=== PATIENT | male | born 1950 | race Two or more races ===

== ENCOUNTER 2020-04-10 20:20 | Emergency (ER) | payer MEDICARE, OTHER ==
[~2020-04-10] VITALS: Ht 162.6 cm; Wt 72.6 kg
--- NOTE | 2020-04-10 20:55 | NUR ---
ED Nurse Note: Patient walked into the ED with c/o left ear pain onset this afternoon. Cause is unknown. Pain is 4/10 associated with sweliing and headache. Patient denies injury, chest pain, SOB, N/V. Patient is AAOX4 and ambulatory.
--- NOTE | 2020-04-10 21:00 | NUR ---
ED Nurse Note: ERMD at bedside
[2020-04-10 21:15] VITALS: BP 157/91
[2020-04-10] MEDS ORDERED: Omnipaque 350 100ml vial INJ PRN (21:15)
--- NOTE | 2020-04-10 21:30 | NUR ---
ED Nurse Note: Blood specimen sent for workup.
[2020-04-10 21:48] LABS: BASOPHILS % (AUTO) 0.5 % (0.0-2.0); EOSINOPHILS % (AUTO) 0.5 % (0.0-3.0); HEMATOCRIT 46.7 % (42.0-52.0); HEMOGLOBIN 15.3 G/DL (14.2-18.0); LYMPHOCYTES % (AUTO) 13.9 % (20.0-45.0); MEAN CORPUSCULAR VOLUME 89 FL (80-99); MONOCYTES % (AUTO) 5.7 % (1.0-10.0); NEUTROPHILS % (AUTO) 79.5 % (45.0-75.0); PLATELET COUNT 210 K/UL (150-450); RED BLOOD COUNT 5.28 M/UL (4.70-6.10); RED CELL DISTRIBUTION WIDTH 12.5 % (11.6-14.8); WHITE BLOOD COUNT 13.9 K/UL (4.8-10.8)
[2020-04-10 21:54] LABS: ANION GAP 13 mmol/L (5-15); BLOOD UREA NITROGEN 15 mg/dL (7-18); CALCIUM 9.2 MG/DL (8.5-10.1); CARBON DIOXIDE 27 MMOL/L (21-32); CHLORIDE 99 MMOL/L (98-107); CREATININE 1.3 MG/DL (0.55-1.30); POTASSIUM 3.1 MMOL/L (3.5-5.1); SODIUM 139 MMOL/L (136-145)
[2020-04-10 22:01] LABS: ALANINE AMINOTRANSFERASE 52 U/L (12-78); ALBUMIN 4.7 G/DL (3.4-5.0); ALKALINE PHOSPHATASE 116 U/L (46-116); ASPARTATE AMINO TRANSFERASE 21 U/L (15-37); BILIRUBIN,TOTAL 0.8 MG/DL (0.2-1.0)
--- NOTE | 2020-04-10 22:22 | Emergency Room Report ---
History of Present Illness General Chief Complaint: Earache Present Illness HPI 70-year-old male with a history of CVA with residual right eye blindness, hypertension here with left-sided facial swelling and left ear pain for 4 days. Patient says he first noticed it 4 days ago and it has been gradually worsening. He has felt warm but does not check his temperature but does not believe he has had a fever. No hearing changes. No difficulty speaking or swallowing. No airway compromise. Says the left side of his face feels "sore" and he is complaining of a generalized headache. No fevers, chills, chest pain , palpitations, shortness of breath, back pain, abdominal pain, cough, nausea, vomiting, diarrhea, dysuria, hematuria. 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 Normal tympanic membranes bilaterally. Left-sided facial swelling over the region of the parotid gland. No skin changes. Pain on palpation of the swelling region Neck: full range of motion, supple/symm/no masses Respiratory: chest non-tender, lungs clear, normal breath sounds, speaking full sentences Cardiovascular #1: regular rate, rhythm, no edema Cardiovascular #2: 2+ carotid (R), 2+ carotid (L), 2+ radial (R), 2+ radial (L) , 2+ dorsalis pedis (R), 2+ dorsalis pedis (L) Gastrointestinal: normal bowel sounds, non tender, soft, non-distended, no guarding, no rebound Rectal: deferred Genitourinary: normal inspection, no CVA tenderness Musculoskeletal: back normal, normal range of motion, calf tenderness, gait/ station normal, non-tender Neurologic: alert, motor strength/tone normal, oriented x3, sensory intact, responsive, speech normal Psychiatric: judgement/insight normal, memory normal, mood/affect normal, no suicidal/homicidal ideation Reflexes: 3+ bicep (R), 3+ bicep (L), 3+ tricep (R), 3+ tricep (L), 3+ knee (R) , 3+ knee (L) Lymphatic: no adenopathy Medical Decision Making ER Course 70-year-old male here with left-sided facial swelling. Patient was found at leukocytosis of around 14,000. Labs otherwise unremarkable. CT soft tissue neck to be performed to rule out abscess versus separative parotitis versus viral parotitis. Patient signed out to oncoming physician. Last Vital Signs Date Time Temp Pulse Resp B/P (MAP) Pulse Ox O2 Delivery O2 Flow Rate FiO2 04/10/20 21:15 99.0 102 16 157/91 98 Room Air Referrals: NON PHYSICIAN (PCP) Rusty Adame M.D. Apr 10, 2020 22:22
[2020-04-10] MEDS ORDERED: AUGMENTIN 875-1 EAC1 ORAL (23:03)
[2020-04-10] MEDS ORDERED: ACETAMINOPHEN-1 EAC1 ORAL (23:03)
--- NOTE | 2020-04-10 23:10 | NUR ---
ER DISCHARGE NOTE: Patient is cleared to be discharged per ERMD, pt is aox4, on room air, with stable vital signs. pt was given dc and prescription instructions, pt was able to verbalize understanding, pt id band and iv site removed without complications. pt is able to ambulate to the waiting area with template reproduction technician and was accompanied by from there.. pt took all belongings.
[2020-04-10 23:11] VITALS: BP 127/85
[2020-04-10] MEDS ORDERED: Augmentin 875mg Tab ORAL ONE (23:15)
[2020-04-10] MEDS ORDERED: Acetaminophen 500mg (ES) tab ORAL ONE (23:15)
--- NOTE | 2020-04-11 00:08 | Emergency Room Report ---
Physical Exam Vital Signs Date Time Temp Pulse Resp B/P (MAP) Pulse Ox O2 Delivery O2 Flow Rate FiO2 04/10/20 20:38 99.0 111 16 157/91 (113) 98 Room Air Medical Decision Making Diagnostic Impression: Primary Impression: Parotitis ER Course Hospital Course 70-year-old male presents with left-sided facial swelling Clinical course Patient initially seen and evaluated by Dr. Adame; please see his note for full history and physical Labs - noted leukocytosis, electrolytes ok, CT scan some prominence of the L parotid compared to R. CT also comments on Left P1 occlusion. chronicity unclear. I discussed findings with patient. Patient has no focal deficits at this time. Prior history of CVA. Presented with complaint of left ear pain and swelling. I gave patient copy of CT report and he states he will follow-up with his PMD. Given antibiotics and pain meds here. Will discharge with antibiotics. Safe for discharge close outpatient follow-up I feel this is a highly complex case requiring extensive workup including EKG/ Rhythm strip, Xray/CT/US, Blood/urine lab work, repeat exams while in ED, and administration of strong opiates/narcotics for pain control, admission to hospital or close patient follow up. Diagnosis - parotitis Stable and discharged to home with Rx Tylenol, Augmentin. Followup with PMD. Return to ED if symptoms recur or worsen Laboratory Tests Test 04/10/20 21:30 White Blood Count 13.9 K/UL (4.8-10.8) H Red Blood Count 5.28 M/UL (4.70-6.10) Hemoglobin 15.3 G/DL (14.2-18.0) Hematocrit 46.7 % (42.0-52.0) Mean Corpuscular Volume 89 FL (80-99) Mean Corpuscular Hemoglobin 29.1 PG (27.0-31.0) Mean Corpuscular Hemoglobin Concent 32.8 G/DL (32.0-36.0) Red Cell Distribution Width 12.5 % (11.6-14.8) Platelet Count 210 K/UL (150-450) Mean Platelet Volume 7.9 FL (6.5-10.1) Neutrophils (%) (Auto) 79.5 % (45.0-75.0) H Lymphocytes (%) (Auto) 13.9 % (20.0-45.0) L Monocytes (%) (Auto) 5.7 % (1.0-10.0) Eosinophils (%) (Auto) 0.5 % (0.0-3.0) Basophils (%) (Auto) 0.5 % (0.0-2.0) Sodium Level 139 MMOL/L (136-145) Potassium Level 3.1 MMOL/L (3.5-5.1) L Chloride Level 99 MMOL/L (98-107) Carbon Dioxide Level 27 MMOL/L (21-32) Anion Gap 13 mmol/L (5-15) Blood Urea Nitrogen 15 mg/dL (7-18) Creatinine 1.3 MG/DL (0.55-1.30) Estimat Glomerular Filtration Rate 54.9 mL/min (>60) Glucose Level 133 MG/DL (74-106) H Calcium Level 9.2 MG/DL (8.5-10.1) Total Bilirubin 0.8 MG/DL (0.2-1.0) Aspartate Amino Transf (AST/SGOT) 21 U/L (15-37) Alanine Aminotransferase (ALT/SGPT) 52 U/L (12-78) Alkaline Phosphatase 116 U/L (46-116) Total Protein 9.4 G/DL (6.4-8.2) H Albumin 4.7 G/DL (3.4-5.0) Globulin 4.7 g/dL Albumin/Globulin Ratio 1.0 (1.0-2.7) CT/MRI/US Diagnostic Results CT/MRI/US Diagnostic Results : Imaging Test Ordered: CTA neck w/ contrast Impression ADDENDUM - Added by Heath Martinez MD on 04/10/2020 10:58 PM (-07:00) Addendum: 1. Per discussion with the attending physician, there is concern regarding left facial swelling and left ear pain. 2. Minimal left parotid prominence compared with the right and minimal intraparotid fat stranding. 3. This could represent parotitis in the proper context. 4. No acute neurologic concern is present. 5. Remainder of the report is unchanged. EXAM: CT Angiography Neck Without and With Intravenous Contrast CLINICAL HISTORY: PAIN TECHNIQUE: Axial computed tomographic angiography images of the neck without and with intravenous contrast. CTDI is 74.6 mGy and DLP is 834.4 mGy-cm. One or more of the following dose reduction techniques were used: automated exposure control, adjustment of the mA and/or kV according to patient size, use of iterative reconstruction technique. MIP reconstructed images were created and reviewed. Coronal and sagittal reformatted images were created and reviewed. Axial reformatted images were created and reviewed. COMPARISON: No relevant prior studies available. FINDINGS: VASCULATURE: Right common carotid artery: Unremarkable. No significant stenosis. No dissection or occlusion. Right internal carotid artery: Unremarkable. Extracranial segment is patent with no significant stenosis. No dissection or occlusion. Right external carotid artery: Unremarkable. No occlusion. Right vertebral artery: Unremarkable. No significant stenosis. No dissection or occlusion. Left common carotid artery: Unremarkable. No significant stenosis. No dissection or occlusion. Left internal carotid artery: Unremarkable. Extracranial segment is patent with no significant stenosis. No dissection or occlusion. Left external carotid artery: Unremarkable. No occlusion. Left vertebral artery: Unremarkable. No significant stenosis. No dissection or occlusion. 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 Otherwise no large vessel occlusion. ASVD in intracranial ICAs without significant flow limitation. NECK: Bones/joints: Mild degenerative spine findings. No acute fracture. No dislocation. Soft tissues: Unremarkable as visualized. No mass. 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 CAROTID STENOSIS REFERENCE USING NASCET CRITERIA: % ICA stenosis = (1 - narrowest ICA diameter/diameter of distal cervical ICA) x 100. Mild - <50% stenosis. Moderate - 50-69% stenosis. Severe - 70-94% stenosis. Near occlusion - 95-99% stenosis. Occluded - 100% stenosis. IMPRESSION: 1. 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 2. Chronicity of this finding is uncertain, given left occipital likely encephalomalacia. 3. Correlate with presentation and clinical history, and if there is continued clinical concern recommend MRI. 4. Correlation with prior imaging studies would be tremendously helpful if possible. 5. Otherwise no visualized intracranial large vessel occlusion or stenosis. 6. Unremarkable CTA neck. Radiologist: Heath Martinez MD Electronically Signed: 04/10/20 22:58 Study ready at 22:42 and initial results transmitted at 22:51 Last Vital Signs Date Time Temp Pulse Resp B/P (MAP) Pulse Ox O2 Delivery O2 Flow Rate FiO2 04/10/20 23:11 98.0 88 18 127/85 98 Room Air Status: improved Disposition: HOME, SELF-CARE Condition: Stable Scripts Acetaminophen With Codeine (T#3) (TYLENOL #3 TAB*) Y Tab 1 TAB ORAL Q8H PRN for For Pain, #12 TAB Prov: Darek Franz MD 04/10/20 Amoxicillin/Potassium Clav 875-125* (AUGMENTIN 875-125 TABLET*) 1 Each Tablet 1 TAB ORAL TWICE A DAY, #14 TAB Prov: Darek Franz MD 04/10/20 Referrals: NON PHYSICIAN (PCP) Hanna Juarez Comp. [facility] Patient Instructions: Parotitis, [id number] Darek Franz MD Apr 11, 2020 00:08
--- NOTE | 2020-04-11 06:33 | Diagnostic Imaging Report ---
ADDENDUM - Added by Heath Martinez MD on 04/10/2020 10:58 PM (-07:00) Addendum: 1. Per discussion with the attending physician, there is concern regarding left facial swelling and left ear pain. 2. Minimal left parotid prominence compared with the right and minimal intraparotid fat stranding. 3. This could represent parotitis in the proper context. 4. No acute neurologic concern is present. 5. Remainder of the report is unchanged. EXAM: CT Angiography Neck Without and With Intravenous Contrast CLINICAL HISTORY: PAIN TECHNIQUE: Axial computed tomographic angiography images of the neck without and with intravenous contrast. CTDI is 74.6 mGy and DLP is 834.4 mGy-cm. One or more of the following dose reduction techniques were used: automated exposure control, adjustment of the mA and/or kV according to patient size, use of iterative reconstruction technique. MIP reconstructed images were created and reviewed. Coronal and sagittal reformatted images were created and reviewed. Axial reformatted images were created and reviewed. COMPARISON: No relevant prior studies available. FINDINGS: VASCULATURE: Right common carotid artery: Unremarkable. No significant stenosis. No dissection or occlusion. Right internal carotid artery: Unremarkable. Extracranial segment is patent with no significant stenosis. No dissection or occlusion. Right external carotid artery: Unremarkable. No occlusion. Right vertebral artery: Unremarkable. No significant stenosis. No dissection or occlusion. Left common carotid artery: Unremarkable. No significant stenosis. No dissection or occlusion. Left internal carotid artery: Unremarkable. Extracranial segment is patent with no significant stenosis. No dissection or occlusion. Left external carotid artery: Unremarkable. No occlusion. Left vertebral artery: Unremarkable. No significant stenosis. No dissection or occlusion. 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 Otherwise no large vessel occlusion. ASVD in intracranial ICAs without significant flow limitation. NECK: Bones/joints: Mild degenerative spine findings. No acute fracture. No dislocation. Soft tissues: Unremarkable as visualized. No mass. 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 CAROTID STENOSIS REFERENCE USING NASCET CRITERIA: % ICA stenosis = (1 - narrowest ICA diameter/diameter of distal cervical ICA) x 100. Mild - <50% stenosis. Moderate - 50-69% stenosis. Severe - 70-94% stenosis. Near occlusion - 95-99% stenosis. Occluded - 100% stenosis. IMPRESSION: 1. 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 2. Chronicity of this finding is uncertain, given left occipital likely encephalomalacia. 3. Correlate with presentation and clinical history, and if there is continued clinical concern recommend MRI. 4. Correlation with prior imaging studies would be tremendously helpful if possible. 5. Otherwise no visualized intracranial large vessel occlusion or stenosis. 6. Unremarkable CTA neck. <MYCVCSECTION> Communications: 04/10/20 22:52 Call Doctor Regarding Other, called Osei MEDLEY on 04/10 22:52 (-07:00)
== END 2020-04-10 23:12 | disposition home or self-care (01) ==
LOC: EMR 21:06
DX: K11.20 Sialoadenitis, unspecified (principal); D72.829 Elevated white blood cell count, unspecified; Z86.73 Personal history of transient ischemic attack (TIA), and cerebral infarction without residual deficits; I10 Essential (primary) hypertension; R51 Headache
CPT/HCPCS: 36415; 70498; 80053; 85025; 87040; 99284; Q9967